=== PATIENT | male | born 1970 | race African-American/Black ===

== ENCOUNTER 2023-05-08 17:29 | Emergency (ER) | payer OTHER, SELFPAY ==
--- NOTE | ~2023-05-08 | XR_ITS ---
EXAM: XR elbow RT min 3V DATE: 05/08/2023 18:01 HISTORY: FELL 1 DAY AGO, PAIN AT [facility] . COMPARISON: None available. FINDINGS: Normal mineralization. No fracture or dislocation. No lytic or blastic lesion. Mild degene rative change at the elbow joint. Moderate olecranon enthesopathy. No erosion or periosteal change. M ild displacement of the anterior fat pad. Mild soft tissue swelling over the olecranon. IMPRESSION: Small joint effusion, may be related to degenerative changes however this finding can als o accompany occult radial head fractures. Olecranon soft tissue swelling/bursitis. Reviewed, dictated and finalized at location K. IMPRESSION: Small joint effusion, may be related to degenerative changes howluis r this finding can also accompany occult radial head fractures. Olecranon soft tissue swelling/bursitis.
[2023-05-08 17:49] VITALS: BP 119/61; PULSE 88; RESP 16; TEMP 37.1; O2SAT 100
[2023-05-08 17:51] VITALS: BP 119/61; PULSE 88; RESP 16; TEMP 37.1; O2SAT 100
--- NOTE | 2023-05-08 18:06 | ED.UPPEXIN ---
HPI - Extremity Injury (Upper) General Chief Complaint: Extremity Injury, Upper Stated Complaint: right elbow injury Time Seen by Provider: 05/08/23 18:01 Source: patient and RN notes reviewed Mode of arrival: ambulatory Limitations: no limitations History of Present Illness HPI narrative: Patient presents today complaining of right elbow pain. He slipped and fell onto his elbow 3 days ago and has been having pain ever since. Denies numbness or tingling in the arm or hand. Currently rates his pain 4/10, which increases with movement. He has tried no [id number] medication for symptoms prior to arrival but is currently taking prednisone for his gout. Related Data Home Medications Medication Instructions Recorded Confirmed febuxostat 40 mg tablet (Uloric) 40 mg DIRECTED 05/08/23 05/08/23 olmesartan 40 1 tablet DIRECTED 05/08/23 05/08/23 mg-hydrochlorothiazide 12.5 mg tablet (Benicar HCT) prednisone 10 mg tablet 10 mg DIRECTED 05/08/23 05/08/23 Allergies Allergy/AdvReac Type Severity Reaction Status Date / Time No Known Allergies Allergy Mild Unverified 02/18/12 07:51 Review of Systems Review of Systems: CONSTITUTIONAL: Denies body aches, fever, chills, or sweats. EYES: Denies visual changes, redness, or discharge. ENT: Denies rhinorrhea, congestion, sore throat, or otalgia. CARDIOVASCULAR: Denies chest pain, palpitations, or edema. RESPIRATORY: Denies cough or dyspnea. GASTROINTESTINAL: Denies abdominal pain, nausea, vomiting, or diarrhea. GENITOURINARY: Denies dysuria or hematuria. SKIN: Denies rash, itching, or wounds. MUSCULOSKELETAL: Denies back pain. + right elbow pain NEUROLOGIC: Denies headache, numbness, tingling, or weakness. PSYCH: Denies depression or anxiety. [facility] Past Medical History Medical History (Updated 05/08/23 @ 18:23 by Estrella Rao, DIANA, ) Gout Hypertension Social History Social History (Updated 05/08/23 @ 18:08 by Estrella Rao, DIANA, ) Smoking packs per day: 1 Smoking cigarettes per day: 20.0 Smoking status: Current every day smoker Tobacco type: cigarettes Comments At time of signature, I have reviewed and agree with nursing past medical, surgical, social and family history unless otherwise noted. Please see nursing chart for further information. There is no relevant family history pertinent to the presenting complaint Exam Narrative: GENERAL: Well-appearing, well-nourished, and in no acute distress. HEAD: Normocephalic, atraumatic. EYES: EOMI. No redness or drainage. Conjunctivae normal. ENT: Mucous membranes pink and moist. NECK: Normal AROM. CHEST: No respiratory distress. EXTREMITIES: Right elbow: Tenderness to the olecranon process with mild edema. Pain to the posterior elbow with internal and external rotation of the wrist. Pain to the antecubital fossa with flexion and extension. Distal sensation intact. Capillary refill normal. Radial pulse normal. SKIN: Warm, dry, no rash. Capillary refill normal. Normal skin turgor. NEURO: No focal deficits. Alert and oriented x3. Gait steady. PSYCH: Normal affect. No signs of depression or anxiety. Course Course Level of Care: Express Care Visit Vital Signs Vital signs: Vital Signs Temperature 98.8 F 05/08/23 17:49 Pulse Rate 88 05/08/23 17:49 Respiratory Rate 16 05/08/23 17:49 Blood Pressure 119/61 05/08/23 17:49 Pulse Oximetry 100 05/08/23 17:49 Oxygen Delivery Room Air 05/08/23 17:49 Temperature 98.8 F 05/08/23 17:51 Pulse Rate 88 05/08/23 17:51 Respiratory Rate 16 05/08/23 17:51 Blood Pressure 119/61 05/08/23 17:51 Pulse Oximetry 100 05/08/23 17:51 Oxygen Delivery Room Air 05/08/23 17:51 Reviewed MDM - Extremity Injury (Upper) MDM Narrative Medical decision making narrative: X-ray shows no acute fracture, however, there is a small joint effusion that may be associated with an occult radial head fra
== END 2023-05-08 18:28 | disposition home or self-care (01) ==
PROVIDERS: Emergency Provider Nurse Practitioner; PCP Nurse Practitioner Family
DX: S59.901A Unspecified injury of right elbow, initial encounter (principal); W01.0XXA Fall on same level from slipping, tripping and stumbling without subsequent striking against object, initial encounter; M10.9 Gout, unspecified; I10 Essential (primary) hypertension; F17.210 Nicotine dependence, cigarettes, uncomplicated
CPT/HCPCS: 73080; 99213; A4565; G0463